=== PATIENT | female | born 1990 | race African-American/Black ===

== ENCOUNTER 2019-05-28 20:22 | Emergency (ER) | payer MEDICAID, OTHER ==
[~2019-05-28] VITALS: Ht 162.6 cm; Wt 113.4 kg
[~2019-05-28 20:22] MED LIST: PREN27TA7 PO
[2019-05-28 22:54] LABS: Urine Amorphous Crystal FEW /hpf (None Seen); Urine Bacteria FEW /hpf (None Seen); Urine Blood Negative /uL (Negative); Urine Specific Gravity 1.023 (1.001-1.035); Urine WBC 6 /hpf (0 - 5)
[2019-05-29] MEDS ORDERED: cefTRIAXone SOD 1,000 MG VL IM ONE
[2019-05-29] MEDS ORDERED: PHENAZOPYRIDINE HCL 100 MG TAB PO ONE
[2019-05-29] MEDS ORDERED: AZITHROMYCIN 250 MG TAB PO ONE
[2019-05-29 00:06] VITALS: BP 132/72
== END 2019-05-29 00:20 | disposition home or self-care (01) ==
LOC: ER 20:25
DX: N39.0 Urinary tract infection, site not specified (principal)
CPT/HCPCS: 81001; 81025; 96372; 99283; J0696

== ENCOUNTER 2019-06-15 17:23 | Emergency (ER) | payer OTHER ==
[~2019-06-15] VITALS: Ht 165.1 cm; Wt 120.2 kg
[2019-06-15 17:52] VITALS: BP 131/58
[2019-06-15 18:50] LABS: Urine Bacteria NONE SEEN /hpf (None Seen); Urine Blood Negative /uL (Negative); Urine Specific Gravity 1.024 (1.001-1.035); Urine WBC 1 /hpf (0 - 5)
[2019-06-15] MEDS ORDERED: KETOROLAC TROMETH 60MG/2ML VIAL IM ONE (21:00)
== END 2019-06-15 23:19 | disposition home or self-care (01) ==
LOC: ER 17:26
DX: S33.5XXA Sprain of ligaments of lumbar spine, initial encounter (principal); M54.41 Lumbago with sciatica, right side; Z79.899 Other long term (current) drug therapy; X58.XXXA Exposure to other specified factors, initial encounter; Y93.89 Activity, other specified; Y99.8 Other external cause status; Y92.89 Other specified places as the place of occurrence of the external cause
CPT/HCPCS: 72100; 76775; 81001; 96372; 99284; J1885